=== PATIENT | female | born 1960 | race Caucasian/White ===

== ENCOUNTER 2021-01-01 23:31 | Emergency (ER) | payer MEDICARE ==
[~2021-01-01 23:31] MED LIST: TRAMADOL HCL50 MG PO; ZITHROMAX Z PA250 MG PO; ZOFRAN4 MG PO
== END 2021-01-01 23:55 | disposition left against medical advice (07) ==
LOC: ED 23:31
DX: R50.9 Fever, unspecified (principal); Z53.21 Procedure and treatment not carried out due to patient leaving prior to being seen by health care provider